=== PATIENT | male | born 1950 | race Caucasian/White ===

== ENCOUNTER 2024-12-09 22:04 | Emergency (ER) | payer MEDICARE, OTHER, SELFPAY ==
[2024-12-09 22:05] VITALS: BMI 31.1
[2024-12-09 22:13] VITALS: BP 179/87; PULSE 92; RESP 20; TEMP 36.8; O2SAT 95
--- NOTE | 2024-12-10 00:11 | PD.EDMALE ---
ED Male Genitalurinary RME/HPI General Chief complaint: Urogenital-Male Stated complaint: CAN'T URINATE Time Seen by Provider: 12/10/24 00:16 Arrival date/time: 12/09/24 22:04 RME / HPI RME / HPI Narrative: 74-year-old male presents to the ED with a complaint of inability to urinate. Patient states he had a TURP last Monday at [facility] by Dr. Graham. This morning his catheter was removed in follow-up. He was able to urinate after the removal of the catheter however this evening he was unable to urinate and therefore presented due to significant pain in the suprapubic area. He denies fever or chills, nausea or vomiting, low back pain or flank pain. He says he is currently taking an antibiotic once daily, unknown name, and states he has 2 or 3 days worth of medication left. Related Data Home Medications ?Medication ?Instructions ?Recorded ?Confirmed metformin 500 mg tablet 500 mg PO BID 10/20/20 10/05/23 amiodarone 200 mg tablet 200 mg PO BID 10/05/23 10/05/23 apixaban 5 mg tablet (Eliquis) 5 mg PO BID A-FIB 10/05/23 10/05/23 metoprolol succinate 50 mg capsule 50 mg PO BID 10/05/23 10/05/23 sprinkle, ext. release 24 hr mirabegron 50 mg tablet,extended 50 mg PO QDAY 10/05/23 10/05/23 release 24 hr (Myrbetriq) semaglutide 7 mg tablet (Rybelsus) 7 mg PO QDAY 10/05/23 10/05/23 tamsulosin 0.4 mg capsule 0.4 mg PO DAILY 10/09/23 10/09/23 Previous Rx's ?Medication ?Instructions ?Recorded sulfamethoxazole 800 1 tab PO BID UTI #14 tabs 12/10/24 mg-trimethoprim 160 mg tablet (Bactrim DS) Allergies Allergy/AdvReac Type Severity Reaction Status Date / Time No Known Allergies Allergy Verified 10/20/20 15:12 Review of Systems Review of Systems Systems Reviewed: All systems reviewed, normal except as documented Past Medical History Past Medical History NEUROLOGIC: Negative Neurological Disorders, Cerebrovascular Accident, Transient Ischemic Attacks (TIA), Dementia, Alzheimer's Disease, Parkinson's Disease, Brain Tumor, Meningitis, Seizures, Epilepsy, Multiple Sclerosis, Cerebral Palsy, Amyotrophic Lateral Sclerosis (ALS/Luba Gehrig's), Guillain-[place] Syndrome, Spina Bifida, Paralysis, Peripheral Neuropathy, Arce's Palsy, Subdural Hematoma, Migraine, Head Trauma, Spinal Cord Injury or Traumatic Brain Injury CARDIAC: Positive Cardiac Arrhythmia and Atrial Fibrillation; Negative Cardiac Disorders, Myocardial Infarction, Angina, Heart Murmur, Coronary Artery Disease, Atherosclerotic Heart Disease, Peripheral Vascular Disease, Hypercholesterolemia, Aneurysm, Congestive Heart Failure, Congenital Heart Disease, Valvular Heart Disease, Rheumatic Fever, Cardiomyopathy, Edema, Pericarditis, Cellulitis, Deep Vein Thrombosis, Hypertension, Hypotension or Varicose Veins RESPIRATORY: Negative Chronic Obstructive Pulmonary Disease (COPD), Asthma, Bronchitis, Emphysema, Pneumonia, Pulmonary Fibrosis, Tuberculosis, Pulmonary Embolism, Pulmonary Edema or Sleep Apnea GASTROINTESTINAL: Positive Gastrointestinal Disorders and Colorectal Cancer (POLYP REMOVED); Negative Hepatitis, Cirrhosis, Pancreatitis, Celiac Disease, Gall Bladder Disease, Gastrointestinal Bleed, Esophageal Varices, Deiv's Esophagus, Colitis, Ulcerative Colitis, Diverticulitis, Diverticulosis, Ulcer, Irritable Bowel, Crohn's Disease, Obstructive Bowel, Hiatal Hernia, Hemorrhoids, Gastroesophageal Reflux Disease or Obesity GENITOURINARY: Positive Genitourinary Disorders (DX NEPHRITIS) and Benign Prostatic Hyperplasia; Negative Renal Disease, Kidney Stones, Polycystic Kidney Disease, Neurogenic Bladder, Inguinal Hernia, Dialysis or Prostate Cancer REPRODUCTIVE: Negative Fibroids, Genital Herpes, Gonorrhea, Syphilis or Testicular Cancer MUSCULOSKELETAL: Positive Musculoskeletal Disorders and Arthritis; Negative Muscular Dystrophy, Myasthenia Gravis, Marfan's Syndrome, Bone Cancer, Rheumatoid Arthritis, Osteoporosis, Degenerative Disk Disease, Gout, Scoliosis, Carpal Tunnel Syndrome, Fibromyalgia, Fractures, Degenerative Joint Disease, Osteomyelitis or Poliovirus ENT: Negative Cataracts, Glaucoma, Blind, Retinal Detachment, Macular Degeneration, Ear Infection, Deafness, Head Trauma or Eye Prosthesis ENDOCRINE: Positive Endocrine Disorders and Diabetes Mellitus Type 2; Negative Diabetes Mellitus Type 1, Hypoglycemia, Florence's Syndrome, Eduard's Disease, Hyperthyroidism, Hypothyroidism, Parathyroid Disease, Pituitary Disease, Systemic Lupus Erythematosus, Syndrome of Inappropriate Antidiuretic Hormone (SIADH), Adrenal Disease or Graves' Disease HEMATOLOGIC: Negative Blood Disorders, Anemia, Leukemia, Hemophilia, Thalassemia, Sickle Cell Disease or Clotting Problems PSYCHO/SOCIAL: Negative Psychiatric Problems, Schizophrenia, Recreational Drug Use, Bipolar Disorder, Depression, Anxiety, Behavior Problems, Self-Mutilation, Attention Deficit Disorder, Attention Deficit Hyperactivity Disorder, Depression, Post Traumatic Stress Disorder or Eating Disorder OTHER HISTORY: Positive Hospitalization, Shingles (FOREARM), Falls, Anesthesia Reactions and Colorectal Cancer (POLYP REMOVED); Negative Autoimmune Disease, Down Syndrome, Autism, Developmental Delay, Blood Transfusions, Blood Transfusion Reaction (n/a), Organ Transplant, Chemotherapy, Radiation Therapy, Hyperbaric Therapy, MRSA, VRSA, Vancomycin-Resistant Enterococci, Human Immunodeficiency Virus (HIV), Chicken Pox, Measles, Mumps, Rubella (Niuean Measles), Pertussis, Clostridium Difficile, Cancer, Cervical Cancer, Lung Cancer, Ovarian Cancer, Prostate Cancer or Testicular Cancer Family History FAMILY HISTORY: Positive Family Cardiac Disorders (mother-HTN, father-heart attack, sister-stroke) and Family Cancer (mother-pancreatic cancer); Negative Family Psychiatric Problems, Family Respiratory Disorders, Family Gastrointestinal Problems, Family Surgery or Family Anesthesia Reaction Surgical History SURGICAL: Positive Vasectomy; Negative Cardiac Surgery, Open Heart Surgery, Coronary Artery Bypass Graft, Valve Replacement, Vascular Surgery, Coronary Stent, Cardiac Catheterization, Pacemaker, Angiogram, Auto Implanted Cardiovert Defib, Carotid Endarterectomy, Endocrine Surgery, Thyroidectomy, Ear Surgery, Tympanostomy Tube, Eye Surgery, Nose Surgery, Oral Surgery, Tonsillectomy, Adenoidectomy, Cochlear Implant, Corneal Transplant, Throat Surgery, Abdominal Surgery, Tracheostomy, Gastric Bypass Surgery, Gastrostomy, Bowel Surgery, Nephrectomy, Transurethral Resection, Joint Replacement, Amputation, Open Reduction Internal Fixation, Arthroscopy, Neurologic Surgery, Brain Shunt, Mastectomy, Lumpectomy, Section or Organ Transplant Social History SMOKING STATUS: Never smoker ED Exam Narrative Physical exam: 74-year-old male, no acute distress. Lungs are clear, regular rate and rhythm without murmur. Abdomen is soft and nontender. No CVA tenderness or flank tenderness is noted. Catheter was placed prior to my evaluation. Catheter was flowing clear helio urine with no clots or sediment. He is feeling much improved since the placement of the catheter. Course Orders Category Date Time Status Quiroz [Urinary Catheter] QS Care 12/09/24 22:10 Active Quiroz to Leg Bag Routine Care 12/10/24 00:14 Ordered UA, C/S IF [Urinalysis, C/S if Indicated] Stat Lab 12/10/24 00:03 Completed Urinalysis Stat Lab 12/10/24 00:03 Completed Urine Culture Stat Lab 12/10/24 00:03 Received Fluconazole [Diflucan] Med 12/10/24 00:51 Discontinued 150 mg PO X1 ONE cefTRIAXone [Rocephin] 2 gm Med 12/10/24 00:51 Discontinued Lidocaine 1% 20 ml [Xylocaine 1% 20 ML] 4.2 ml IM X1 Vital Signs Vital signs: Vital Signs Temperature 98.3 F 12/09/24 22:13 Pulse Rate 92 12/09/24 22:13 Respiratory Rate 20 12/09/24 22:13 Blood Pressure 179/87 H 12/09/24 22:13 Pulse Oximetry (%) 95 12/09/24 22:13 Oxygen Delivery Method Room Air 12/09/24 22:13 Urogenital - Male MDM Narrative MDM Narrative:: Patient was given ceftriaxone 2 g IM He will be discharged home with Bactrim DS 1 tab p.o. twice daily pending culture results. Patient data Clinical information provided by:: patient Social determinants that could affect healthcare access:: none Patient has the following chronic illnesses:: Obstructive uropathy, diabetes, coronary artery disease How is presenting disease/condition affected by chronic disease/condition?: caused by Evaluation data The following diagnostics were reviewed and interpreted by me:: lab results Lab and/or radiology exams considered but not ordered:: N/A Interpretation Summary: Urinalysis reveals turbid helio urine with a specific gravity of 1.022 with 2+ protein, 2+ glucose, 1+ ketones, 3+ blood, negative nitrites, positive leukocyte esterase, 1167 RBCs, 61 WBCs, 1+ bacteria and positive urine yeast. Medications / Prescriptions Medications or Prescriptions considered but not ordered:: N/A Medication administrations:: Medication Administration History Discontinued Medications Ceftriaxone Sodium 2 gm/ (Lidocaine HCl 4.2 ml) 0 gm IM X1 ONE Stop: 12/10/24 00:52 Fluconazole (Fluconazole 150 Mg Tablet) 150 mg PO X1 ONE Stop: 12/10/24 00:52 Ceftriaxone 2 g IM and fluconazole 150 mg p.o. Consultations Consultation(s) initiated? (list below): No Diagnosis Urogenital Male Differential Diagnosis: urinary tract infection, urethritis, acute retention of urine and other (Pyelonephritis) Most likely diagnosis given after review of the tests above:: Obstructive uropathy, UTI Admission Indicated Admission indicated?: not indicated Explain why admission is indicated or not indicated:: Patient is stable for discharge Admission Request Was there a request for admission?: No Disposition Plan Disposition Plan: Discharge Discharge Attestation Discharge Attestation: The patient and all family members were given an opportunity to ask questions and understood the discharge instructions. Discharge instructions specifically effects, indications for sooner follow up or return to the emergency department, and the expected course of current diagnosis. Patient condition: Stable Discharge Plan Plan Patient Disposition: HOME (Self Care) Discharge Disposition comment: Stable and improved Prescriptions/Referrals Prescriptions/Med Rec: New sulfamethoxazole-trimethoprim [Bactrim DS] 800-160 mg tablet 1 tab PO BID Qty: 14 0RF No Action metformin 500 mg Tablet 500 mg PO BID amiodarone 200 mg Tablet 200 mg PO BID Myrbetriq 50 mg Tablet Extended Release 24 Hr 50 mg PO QDAY Eliquis 5 mg Tablet 5 mg PO BID metoprolol succinate 50 mg Capsule,Sprinkle,Er 24hr 50 mg PO BID Rybelsus 7 mg Tablet 7 mg PO QDAY tamsulosin 0.4 mg Capsule 0.4 mg PO DAILY Referrals: Sho Michaels MD [Primary Care Provider] - In 1 week Problem List Clinical Impression: Acute retention of urine, Catheter-associated urinary tract infection Patient/Caregiver Discharge Instructions Education Materials: ED Urinary Retention, Male, ED Bladder Infection, Male (Adult) Additional Instructions: Contact your urologist in the morning to schedule a follow-up appointment. Take the antibiotics as prescribed and complete the course even though you may be feeling better. A urine culture is being performed to determine the exact bacteria that is causing the infection. It may be necessary to change the antibiotic. Return to the ED for any new or worsening symptoms. Print Language: Spanish Stand Alone Forms: [employer] Info., Patient Portal Info Letter PA/JACQUELINE Supervising Physician PA/JACQUELINE Supervising Physician: Dr. Sy
[2024-12-10 00:20] LABS: Collection Type, Urine Catheter; Squamous Epithelial Cell,Urine 0 /hpf (0-5)
[2024-12-10 00:29] LABS: Bacteria,Urine 1+; Bilirubin,Urine Negative (Negative); Blood,Urine 3+ (Negative); Budding Yeast,Urine Present; Clarity,Urine Turbid (Clear/Hazy); Glucose, Urine 2+ (Negative); Ketones,Urine 1+ (Negative); Leukocyte Esterase,Urine Positive (Negative); Nitrite,Urine Negative (Negative); PH,Urine 5.5 (5.0-7.0); Protein,Urine 2+ (Neg - Trace); RBC,Urine 1167 /hpf (0-3); Specific Gravity,Urine 1.022 (1.001-1.035); Urobilinogen,Urine Negative mg/dL (0.0-1.0); WBC,Urine 61 /hpf (0-5)
[2024-12-10 00:30] LABS: Color,Urine Amber (Lt Yel-Yel); Culture Indicated,Urine Yes
[2024-12-10] MEDS: cefTRIAXone 2 GM, LIDOCAINE 1% 20 ML 4.2 ML IM (01:12)
[2024-12-10] MEDS: FLUCONAZOLE 150 MG TABLET PO (01:12)
[2024-12-10 01:40] VITALS: RESP 16
== END 2024-12-10 01:41 | disposition home or self-care (01) ==
PROVIDERS: Emergency Provider Emergency Medicine; PCP Family Medicine
DX: T83.511A Infection and inflammatory reaction due to indwelling urethral catheter, initial encounter (principal)
CPT/HCPCS: 51702; 81001; 87086; 96372; 99283; J0696; J3490; A9270

== ENCOUNTER → 2025-01-07 | Outpatient (CLI) | payer MEDICARE, OTHER, SELFPAY ==
--- NOTE | 2025-01-07 14:34 | XR_ITS ---
Examination: Bilateral AP knees single view TECHNIQUE: Standing bilateral AP knees single view Date and time: January 07, 2025 1445 hours INDICATIONS: Bilateral knee pain 10 years. FINDINGS: Bilateral severe narrowing medial joint spaces, [id number] No fractures or dislocations Moderate osteopenia IMPRESSION: Bilateral severe narrowing medial joint spaces, [id number]
--- NOTE | 2025-01-07 14:34 | XR_ITS ---
Examination: Knee bilateral, 7 views Technique: Knee AP, lateral, oblique each knee total 6 views, bilateral axial knees single view Date and time of exam: January 07, 2025 1438 hours INDICATIONS: Bilateral knee pain 10 years. 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
== END | disposition home or self-care (01) ==
LOC: CDIM 14:28
PROVIDERS: PCP Family Medicine; Referring Provider Orthopaedic Surgery; Visit Provider Orthopaedic Surgery
DX: M17.0 Bilateral primary osteoarthritis of knee (principal); M25.862 Other specified joint disorders, left knee; M25.861 Other specified joint disorders, right knee
CPT/HCPCS: 73564; 73565

== ENCOUNTER 2025-03-20 10:02 | Emergency (ER) | payer MEDICARE, OTHER, SELFPAY ==
[2025-03-20] VITALS (12 sets, daily range): BP systolic 114–134; BP diastolic 61–96; PULSE 78–136; RESP 16–22; TEMP 36.6–36.7; O2SAT 95–99; BMI 31.6
--- NOTE | 2025-03-20 10:07 | EKG_ITS ---
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
--- NOTE | 2025-03-20 10:13 | PD.EDARRY ---
ED Arrhythmia Palp. RME/HPI General Chief Complaint: Arrhythmia/Palpitations Stated Complaint: SENT FROM CLINIC C/O CHEST TIGHTNESS, EKG ABNORMAL Time Seen by Provider: 03/20/25 10:10 Arrival date/time: 03/20/25 10:02 RME / HPI RME / HPI narrative: Mr. Montez is a 74-year-old male with past medical history of hypertension, hyperlipidemia, atrial fibrillation status post ablation, diabetes mellitus, BPH status post surgery and essential tremors who presented to [facility] ED from cardiology office with a chief complaint of palpitations and tachycardia. Patient reported that he started having palpitations last night, took a flecainide and Xarelto and went to sleep. Saw his rounding machine tender earlier this morning who recommended him to go to the emergency department for further workup, patient did endorse chest tightness last night however denies any chest pain shortness of breath, dizziness, falls. Patient is ambulating well patient ambulated from rounding machine tender office to the hospital. EKG from rounding machine tender office reviewed, patient noted to be in AVNRT in the triage. Related Data Home Medications ?Medication ?Instructions ?Recorded ?Confirmed metformin 500 mg tablet 500 mg PO BID 10/20/20 10/05/23 Previous Rx's ?Medication ?Instructions ?Recorded diltiazem HCl 180 mg 180 mg PO QAM Atrial Fibrillation 03/20/25 capsule,extended release 24 hr 30 days #30 caps flecainide 100 mg tablet 100 mg PO Q12H #60 tabs 03/20/25 rivaroxaban 20 mg tablet (Xarelto) 20 mg PO QPM Atrial Flutter 30 03/20/25 days #30 tabs Allergies Allergy/AdvReac Type Severity Reaction Status Date / Time No Known Allergies Allergy Verified 03/20/25 10:07 Review of Systems Review of Systems Systems Reviewed: All systems reviewed, normal except as documented Past Medical History Past Medical History Comments PMH COMMENT: PMH: Positive for hypertension, hyperlipidemia, atrial fibrillation status post ablation, diabetes mellitus, BPH status post surgery and essential tremors PSHx: Prostate surgery Allergies: No known allergies Social history: -Smoking: Denies -Alcohol Use: Denies -Illicit Drug Use: Denies -Occupation: Retired Family History:As Above ED Exam Narrative Physical exam: Physical Exam General: Awake and in no acute distress. Conversational and non-toxic appearing. HEENT: Normocephalic, atraumatic, mucous membranes moist. Heart: Regular Tachycardia, no murmurs. Lungs: Clear to auscultation with no wheezing or crackles. Abdomen: Soft, obese, nondistended, nontender, positive bowel sounds. ?No guarding or rebound tenderness. Neurologic: Alert and oriented x3, no gross neurological deficit, and patient able to move all 4 extremities. Extremities: No edema. Skin: No rash or ecchymoses. Course Course Course Narrative: 2 IVs inserted, patient placed on pads. AVNRT, rate 135, EKG obtained prior. Patient was given 6 mg adenosine, continued to remain in AVNRT Patient was given 12 mg adenosine after 3-5 mins continued to remain in AVNRT Underlying rhythm suspected atrial flutter Patient was given 20 mg of diltiazem, rate controlled flutter. Repeat EKG noted. Patient was given 180 mg Cardizem p.o. after discussion with cardiology cardiology recommended discharging the patient. Prior to discharge patient noted to be in RVR, was given another push of 20 mg diltiazem with rounding machine tender stable for discharge Heart rate 78 prior to discharge, patient remained asymptomatic and blood pressure was permissible for medications throughout the ED course. Case discussed with rounding machine tender Dr. Pettit, patient will be discharged on flecainide 100 mg twice a day, Cardizem 180 mg daily and Xarelto Patient was scheduled for knee replacement surgery however advised patient to not proceed with surgery and follow-up with rounding machine tender on Monday Educated patient on strict return precautions if heart rate worsens with symptoms of dizziness and palpitations. Patient verbalized understanding. Quality Measures none Orders Category Date Time Status Beer Brewer Q4H START 00 Care 03/20/25 10:11 Active Continuous Pulse Oximetry NOW Care 03/20/25 10:11 Active EKG (ED ONLY) *Do not use* NOW Care 03/20/25 10:07 Active Insert IV NOW Care 03/20/25 10:11 Active EKG (ED Only) Stat Exams 03/20/25 10:07 Draft CBC Stat Lab 03/20/25 10:11 Ordered CMP [Comprehensive Metabolic Panel] Stat Lab 03/20/25 10:11 Ordered Mag [Magnesium] Stat Lab 03/20/25 10:11 Ordered Phosphorous Stat Lab 03/20/25 10:11 Ordered Adenosine 6mg Inj [Adenocard Inj] Med 03/20/25 10:10 Discontinued 6 mg IVP X1 ONE Arrhythmia/Palpitations MDM Narrative MDM Narrative:: #SVT, AVNRT #Atrial Fib/Flutter with RVR Reported that he started having palpitations last night, took a flecainide and Xarelto and went to sleep. Saw his rounding machine tender earlier this morning who recommended him to go to the emergency department for further workup, patient did endorse chest tightness last night however denied any chest pain shortness of breath, dizziness, falls. 2 IVs inserted, patient placed on pads. AVNRT, rate 135, EKG obtained prior. Patient was given 6 mg adenosine, continued to remain in AVNRT Patient was given 12 mg adenosine after 3-5 mins continued to remain in AVNRT, Underlying rhythm suspected atrial flutter Patient was given 20 mg of diltiazem, rate controlled flutter. Repeat EKG noted. Patient was given 180 mg Cardizem p.o. after discussion with cardiology cardiology recommended discharging the patient. Prior to discharge patient noted to be in RVR, was given another push of 20 mg diltiazem discussed with rounding machine tender stable for discharge Heart rate 78 prior to discharge, patient remained asymptomatic and blood pressure was permissible for medications throughout the ED course. Case discussed with rounding machine tender Dr. Pettit, patient will be discharged on flecainide 100 mg twice a day, Cardizem 180 mg daily and Xarelto Case discussed with Attending Physician Dr. James Schofield MD Internal Medicine PGY-2 Disclaimer: This note was dictated by speech recognition. Minor errors in social media intern may be present due to voice recognition software. Patient data External records reviewed:: [facility] previous records and Other (specify) (Cardiology Office Records) Clinical information provided by:: patient and other (specify) (Dr Pettit) Social determinants that could affect healthcare access:: none Patient has the following chronic illnesses:: As Above How is presenting disease/condition affected by chronic disease/condition?: exacerbated by Evaluation data The following diagnostics were reviewed and interpreted by me:: lab results and EKG tracing(s) Lab and/or radiology exams considered but not ordered:: None Interpretation Summary: CBC unremarkable, CMP shows chloride 109, potassium 4, magnesium 2 Initial EKG on presentation shows AVNRT, rate 137, QRS 92, QTc 464, rounding machine tender office EKG shows AVNRT. Postconversion EKG shows atrial flutter, rate 79, QTc 420, QRS 97 Medications / Prescriptions Medications or Prescriptions considered but not ordered:: None Medication administrations:: Medication Administration History Discontinued Medications Adenosine (Adenosine Inj 3 Mg/Ml Vial) 6 mg IVP X1 ONE Stop: 03/20/25 10:11 Consultations Consultation(s) initiated? (list below): Yes Consultation #1 (Physician, Specialty, Details): Dr. Pettit, rounding machine tender, discussed with Dr. Pettit the ED course and discharge patient per his recommendations Diagnosis Differential diagnosis arrhythmia/palpitations: artial fibrillation, artial flutter and supraventricular tachycardia Most likely diagnosis given after review of the tests above:: SVT converted to atrial flutter Admission Indicated Admission indicated?: not indicated Admission Request Was there a request for admission?: No Disposition Plan Disposition Plan: Discharge Discharge Attestation Discharge Attestation: The patient and all family members were given an opportunity to ask questions and understood the discharge instructions. Discharge instructions specifically effects, indications for sooner follow up or return to the emergency department, and the expected course of current diagnosis. Patient condition: Stable Discharge Plan Plan Patient Disposition: HOME (Self Care) Patient condition on transfer: Stable Health Concerns: -You were diagnosed with SVT in the emergency department, after discussion with your rounding machine tender you were given medications and your heart rate is controlled. You will be discharged on the medications as below -Take Xarelto 20mg daily, first dose tonight -Take diltiazem 180 mg capsule every day, first dose tomorrow, you were given 1 dose in ER today -Take flecainide 100 mg twice a day, first dose tonight. -Follow-up with your rounding machine tender on Monday to repeat EKG in his office -Per cardiology recommendations, do not proceed with knee surgery -Return to ED if you have symptom, your heart rate increases, you feel dizzy and have significant palpitations like your heart beating out of your chest -Follow-up with your rounding machine tender, continue all your home medications -Follow-up with your primary care physician in 1 week Prescriptions/Referrals Prescriptions/Med Rec: New flecainide 100 mg tablet 100 mg PO Q12H Qty: 60 0RF Xarelto 20 mg tablet 20 mg PO QPM 30 Days Qty: 30 0RF Rx Instructions: must administer with evening meal diltiazem HCl 180 mg capsule,extended release 24hr 180 mg PO QAM 30 Days Qty: 30 3RF Continued metformin 500 mg Tablet 500 mg PO BID Discontinued amiodarone 200 mg Tablet 200 mg PO BID mirabegron [Myrbetriq] 50 mg Tablet Extended Release 24 Hr 50 mg PO QDAY Eliquis 5 mg Tablet 5 mg PO BID metoprolol succinate 50 mg Capsule,Sprinkle,Er 24hr 50 mg PO BID Rybelsus 7 mg Tablet 7 mg PO QDAY tamsulosin 0.4 mg Capsule 0.4 mg PO DAILY sulfamethoxazole-trimethoprim [Bactrim DS] 800-160 mg tablet 1 tab PO BID Qty: 14 0RF Referrals: Sho Michaels MD [Primary Care Provider, Family Practice] - In 1 week Problem List Clinical Impression: Supraventricular tachycardia Patient/Caregiver Discharge Instructions Discharge Activity: activity as tolerated Education Materials: Calcium Channel Blockers Dc, ED About Arrhythmias Print Language: Ghanaian Stand Alone Forms: [employer] Info., Patient Portal Info Letter
[2025-03-20] MEDS: ADENOSINE INJ 3 MG/ML VIAL 6 MG IVP (10:34)
[2025-03-20] MEDS: ADENOSINE INJ 3 MG/ML VIAL 12 MG IVP (10:43)
[2025-03-20 10:45] LABS: Basophils # (Auto) 0.0 Thou/mm3 (0.0-0.2); Basophils % (Auto) 0 % (0-2.5); Eosinophils # (Auto) 0.1 Thou/mm3 (0.0-0.5); Eosinophils % (Auto) 2 % (0-10); Hematocrit 46.8 % (41.0-53.0); Hemoglobin 15.3 g/dL (13.5-16.0); Immature Granulocytes Auto 0.04 Thou/mm3 (0.00-0.00); Lymphocytes # (Auto) 2.0 Thou/mm3 (1.0-4.8); Lymphocytes % (Auto) 27 % (10-50); Mean Corpuscular HGB Conc 32.7 g/dl (31.0-37.0); Mean Corpuscular Hemoglobin 29.0 pg (25.0-35.0); Mean Corpuscular Volume 89 fL (80-100); Monocytes # (Auto) 0.9 Thou/mm3 (0.0-0.8); Monocytes % (Auto) 11 % (0-12); Neutrophils # (Auto) 4.4 Thou/mm3 (1.8-7.7); Neutrophils % (Auto) 59 % (37-80); Nucleated Red Blood Cell # 0.00 Thou/mm3 (0.00-0.00); Nucleated Red Blood Cell % 0 /100 WBC (0); Platelet Count 158 Thou/mm3 (140-440); RDW Standard Deviation 45.1 fL (35.1-43.9); Red Blood Count 5.28 Miln/mm3 (4.50-5.90); White Blood Count 7.5 Thou/mm3 (3.8-10.6)
[2025-03-20] MEDS: RINGERS LACTATED 1000 ML 1,000 ML 999 ML IV (10:52)
[2025-03-20] MEDS: DILTIAZEM INJ 5 MG/ML VIAL 5 ML 20 MG IV ×2 (10:53→13:26)
--- NOTE | 2025-03-20 10:56 | EKG_ITS ---
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
[2025-03-20 11:02] LABS: Alanine Aminotransferase 13 U/L (10-49); Albumin, Serum 4.7 gm/dL (3.4-4.8); Albumin/Globulin Ratio 2.5 (1.2-2.2); Alkaline Phosphatase 48 U/L (46-116); Anion Gap 11 (7-16); Aspartate Amino Transferase 18 U/L (0-34); BUN/Creatinine Ratio 20 Ratio (12-20); Bilirubin,Total 0.4 mg/dL (0.3-1.2); Blood Urea Nitrogen 16 mg/dL (9-23); Calcium 9.4 mg/dL (8.3-10.6); Calcium (Corrected) 9.4 mg/dL (8.5-10.1); Carbon Dioxide 23.7 mMol/L (20.0-31.0); Chloride 109 mMol/L (98-107); Creatinine (Component) 0.8 mg/dL (0.6-1.3); Estimated Creatinine Clearance 84.8 mL/min (>60); Globulin 1.9 gm/dL (2.3-3.5); Glucose 122 mg/dL (74-106); Magnesium 2.0 mg/dL (1.6-2.6); Osmolality,Calculated 289 (275-295); Phosphorous 2.8 mg/dL (2.4-5.1); Potassium 4.0 mMol/L (3.4-5.1); Sodium 144 mMol/L (136-145); Total Protein 6.6 gm/dL (5.7-8.2); eGFR > 60 See Note
[2025-03-20] MEDS: DILTIAZEM CD 180 MG CAPCR PO (12:29)
== END 2025-03-20 13:57 | disposition home or self-care (01) ==
PROVIDERS: PCP Family Medicine
DX: I47.19 Other supraventricular tachycardia (principal); I10 Essential (primary) hypertension; E78.5 Hyperlipidemia, unspecified; E11.9 Type 2 diabetes mellitus without complications; N40.0 Benign prostatic hyperplasia without lower urinary tract symptoms; I48.91 Unspecified atrial fibrillation; G25.0 Essential tremor
CPT/HCPCS: 36415; 80053; 83735; 84100; 85025; 93005; 96360; 96374; 96376; 99284; J0153; J3490; J7120; A9270

== ENCOUNTER → 2025-06-30 | Outpatient (CLI) | payer MEDICARE, OTHER, SELFPAY | END | disposition home or self-care (01) | PROVIDERS: PCP Family Medicine; Referring Provider Family Medicine; Visit Provider Surgery | DX: T81.89XA Other complications of procedures, not elsewhere classified, initial encounter (principal); S21.102A Unspecified open wound of left front wall of thorax without penetration into thoracic cavity, initial encounter; X58.XXXA Exposure to other specified factors, initial encounter; I10 Essential (primary) hypertension; E11.69 Type 2 diabetes mellitus with other specified complication; I48.91 Unspecified atrial fibrillation; Z79.85 Long-term (current) use of injectable non-insulin antidiabetic drugs; Z79.84 Long term (current) use of oral hypoglycemic drugs | CPT/HCPCS: 99213; G0463 ==